=== PATIENT | male | born 1965 | race Caucasian/White ===

== ENCOUNTER → 2017-03-17 | Outpatient (CLI) | payer OTHER | LOC: BMCIMAGING 11:01 | PROVIDERS: ATTEND Internal Medicine Rheumatology | DX: Z13.820 Encounter for screening for osteoporosis (principal); M81.0 Age-related osteoporosis without current pathological fracture ==

== ENCOUNTER → 2018-07-28 | Outpatient (CLI) | payer OTHER | LOC: BMCIMAGING 08:55 | PROVIDERS: ATTEND Internal Medicine | DX: K76.89 Other specified diseases of liver (principal) ==

== ENCOUNTER 2018-12-19 16:59 | Emergency (ER) | payer OTHER | END 2018-12-19 19:12 | disposition home or self-care (01) ==